=== PATIENT | female | born 1955 | race Caucasian/White ===

== ENCOUNTER 2016-12-23 16:57 | Inpatient (IN) | payer BC ==
[~2016-12-23 16:57] MED LIST: ADVIL200 M1 PO; ALEVE220 M4 PO; ANTIBIOTIC PO; ATIVAN0.5 M1 PO; ATIVAN0.5 MG PO; ATORVASTATIN CA20 M1 PO; BIOTIN1 M2 PO; BL MAXEPA CAPSU1 CAP PO; CALCIUM + D T1 UDTAB PO; CALCIUM 600 +1 EA10 PO; CALCIUM 600 MG1 EACH PO; CENTRUM COMPLE1 EACH PO; CINNAMON500 MG PO; EQL FISH OIL 1,1 CA1 PO; ESTROGEN BLOCKER PO; FEMARA2.5 MG PO; FENOFIBRATE134 M1 PO; FISH OIL PO; H PO; HYDROCHLOROTH12.5 M3 PO; HYDROCHLOROTHIA25 M1 PO; KEFLEX500 M4 PO; LANSOPRAZOLE30 M1 PO; LETROZOLE2.5 M1 PO; LISINOPRIL-HCTZ1 TAB PO; LISINOPRIL10 M1 PO; LISINOPRIL20 M1 PO; LUNESTA2 M1 PO; LUNESTA2 MG PO; MYCOLOG TOP; NORCO 5/3251 TA1 PO; POTASSIUM CHLO10 ME2 PO; PREVACID PO; PREVACID30 M1 PO; PREVACID30 M2 PO; SUPER B COMPLE150 M1 PO; TOPROL XL25 M1 PO; ULTRAM50 M1 PO; VITAMIN B COMP1 EAC1 PO; VITAMIN B-121000 MC1 PO; VITAMIN B12-FO1 EAC1 PO; VITAMIN B121000 MCG PO; VITAMIN D PO; VITAMIN D1000 UNI3 PO; VITAMIN D1000 UNIT PO; VYTORIN 10-201 EACH PO; VYTORIN PO; WELBUTRIN PO; WELLBUTRIN XL150 M1 PO; WELLBUTRIN XL150 MG PO; ZIAC PO; ZOFRAN4 M2 PO; [UNRECOGNIZED DRUG - REMARK]
[2016-12-23 19:20] LABS: BASO % 0.2 % (0-2); EOSINOPHIL ABSOLUTE COUNT 0.1 tho/cmm (0.0-0.7); HCT-HEMATOCRIT 33.9 % (34.0-49.0); HGB-HEMOGLOBIN 11.4 gm/dl (12.0-15.5); IMMATURE GRANULOCYTES ABSOLUTE 0.08 tho/cmm (0-0.03); IMMATURE GRANULOCYTES PERCENT 0.6 % (0-0.3); LYMPH % 11.5 % (20-45); LYMPH ABSOLUTE COUNT 1.5 tho/cmm (0.8-4.5); MCHC MEAN CORPUSCULAR HGB CONC 33.6 % (32.0-36.0); MCV (MEAN CELL VOLUME) 83.3 fl (82.0-96.0); MEAN PLATELET VOLUME 10.2 cmc (9.4-12.4); MONO % 5.4 % (0-12); MONOCYTE ABSOLUTE COUNT 0.7 tho/cmm (0.0-1.2); NEUTROPHIL ABSOLUTE COUNT 10.4 tho/cmm (1.6-8.0); NEUTROPHIL-AUTOMATED 10.4 tho/cmm (1.6-8.0); NEUTROPHILS % 81.3 % (40-80); PLATELET COUNT 343 tho/cmm (150-450); RED BLOOD COUNT 4.07 mil/cmm (4.00-5.20); RED CELL DISTRIBUTION WIDTH 14.7 % (12.4-16.4); WHITE BLOOD COUNT 12.8 tho/cmm (4.0-10.0)
[2016-12-23 19:35] LABS: ALB/GLOB RATIO 0.5 (0.8-2.0); ALBUMIN 2.7 g/dl (3.5-5.0); ALKALINE PHOSPHATASE 60 U/L (33-138); ALT/SGPT 24 U/L (12-78); ANION GAP 14 mmol/L (0-20); AST/SGOT 12 U/L (10-40); BILIRUBIN,TOTAL 0.2 mg/dl (0-1.5); BLOOD UREA NITROGEN 13 mg/dl (6-24); CALCIUM 9.5 mg/dl (8.5-10.5); CARBON DIOXIDE-VENOUS 24 mmol/L (22-32); CHLORIDE 101 mmol/l (96-110); CREATININE 0.79 mg/dl (0.50-1.10); GLUCOSE 169 mg/dL (70-110); POTASSIUM 3.7 mmol/L (3.7-5.1); SODIUM 135 mmol/L (135-145); eGFR VALUE FOR BLACK >90 mL/Min
[2016-12-24 10:21] LABS: BASO % 0.5 % (0-2); BASO ABSOLUTE COUNT 0.1 tho/cmm (0.0-0.2); EOS % 1.1 % (0-7); EOSINOPHIL ABSOLUTE COUNT 0.1 tho/cmm (0.0-0.7); HCT-HEMATOCRIT 35.4 % (34.0-49.0); HGB-HEMOGLOBIN 11.8 gm/dl (12.0-15.5); LYMPH % 15.4 % (20-45); LYMPH ABSOLUTE COUNT 1.6 tho/cmm (0.8-4.5); MCHC MEAN CORPUSCULAR HGB CONC 33.3 % (32.0-36.0); MCV (MEAN CELL VOLUME) 84.1 fl (82.0-96.0); MONO % 6.8 % (0-12); MONOCYTE ABSOLUTE COUNT 0.7 tho/cmm (0.0-1.2); NEUTROPHIL ABSOLUTE COUNT 7.9 tho/cmm (1.6-8.0); NEUTROPHIL-AUTOMATED 7.9 tho/cmm (1.6-8.0); NEUTROPHILS % 75.2 % (40-80); PLATELET COUNT 381 tho/cmm (150-450); RED BLOOD COUNT 4.21 mil/cmm (4.00-5.20); RED CELL DISTRIBUTION WIDTH 14.9 % (12.4-16.4); WHITE BLOOD COUNT 10.5 tho/cmm (4.0-10.0)
[2016-12-25 04:31] LABS: BASO % 0.1 % (0-2); EOS % 0.1 % (0-7); HCT-HEMATOCRIT 32.1 % (34.0-49.0); HGB-HEMOGLOBIN 10.9 gm/dl (12.0-15.5); IMMATURE GRANULOCYTES ABSOLUTE 0.08 tho/cmm (0-0.03); IMMATURE GRANULOCYTES PERCENT 0.6 % (0-0.3); LYMPH % 6.2 % (20-45); LYMPH ABSOLUTE COUNT 0.8 tho/cmm (0.8-4.5); MCH (MEAN CORPUSCULAR HGB) 28.7 pg (28.0-32.0); MCV (MEAN CELL VOLUME) 84.5 fl (82.0-96.0); MEAN PLATELET VOLUME 9.6 cmc (9.4-12.4); MONO % 4.8 % (0-12); MONOCYTE ABSOLUTE COUNT 0.6 tho/cmm (0.0-1.2); NEUTROPHIL ABSOLUTE COUNT 11.2 tho/cmm (1.6-8.0); NEUTROPHIL-AUTOMATED 11.2 tho/cmm (1.6-8.0); NEUTROPHILS % 88.2 % (40-80); PLATELET COUNT 366 tho/cmm (150-450); RED CELL DISTRIBUTION WIDTH 14.8 % (12.4-16.4); WHITE BLOOD COUNT 12.7 tho/cmm (4.0-10.0)
[2016-12-25] MEDS ORDERED: ULTRAM50 M1 PO (09:56)
[2016-12-25] MEDS ORDERED: TYLENOL325 M2 PO (09:56)
[2016-12-25] MEDS ORDERED: CUBICIN IV (09:59)
== END 2016-12-25 11:20 | DRG 585 ==
LOC: CAR1 16:57 → ORW 12-24 15:20 → PACU 12-24 16:46 → CAR1 12-24 17:46
PROVIDERS: ADMIT Plastic Surgery
PROC: B548ZZA Ultrasonography of Superior Vena Cava, Guidance (ICD-10-PCS; 2016-12-23)
PROC: 02HV33Z Insertion of Infusion Device into Superior Vena Cava, Percutaneous Approach (ICD-10-PCS; 2016-12-23)
PROC: 3E0F7GC Introduction of Other Therapeutic Substance into Respiratory Tract, Via Natural or Artificial Opening (ICD-10-PCS; principal; 2016-12-24)
PROC: 0HPU0JZ Removal of Synthetic Substitute from Left Breast, Open Approach (ICD-10-PCS; principal; 2016-12-24)
PROC: 0HPT0JZ Removal of Synthetic Substitute from Right Breast, Open Approach (ICD-10-PCS; principal; 2016-12-24)
DX: N61.1 Abscess of the breast and nipple (principal); I10 Essential (primary) hypertension; Z85.3 Personal history of malignant neoplasm of breast; Z92.3 Personal history of irradiation; E78.5 Hyperlipidemia, unspecified; B95.61 Methicillin susceptible Staphylococcus aureus infection as the cause of diseases classified elsewhere
CPT/HCPCS: C1751; J0878; J3010; J3370; J7050